=== PATIENT | male | born 1945 | race Caucasian/White ===

== ENCOUNTER 2023-10-11 11:47 | Observation (INO) | payer OTHER ==
[2023-10-11 14:53] LABS: HEMATOCRIT 40.3 % (35.4-49); HEMOGLOBIN 13.3 G/dL (11.7-16.9); MCH 31.2 pg (25.7-33.7); MCHC 32.9 g/dl (32.0-35.9); MEAN CELL VOLUME 94.9 fl (80-96); MEAN PLT VOLUME 9.7 fl (7.5-11.1); PLATELET COUNT 228.3 10^3/uL (134-434); RBC 4.25 10^6/uL (4.00-5.60); RDW 14.8 % (11.9-15.9); WHITE BLOOD COUNT 9.9 10^3/uL (4.0-10.8)
[2023-10-11 15:02] LABS: INR 1.18 (0.83-1.09); PROTHROMBIN TIME (PATIENT) 13.7 SEC (9.7-13.0)
[2023-10-11 16:46] LABS: POTASSIUM 3.7 mmol/L (3.5-5.1)
[2023-10-11 16:48] LABS: ALBUMIN 3.2 g/dl (3.4-5.0); BLOOD UREA NITROGEN 26.1 mg/dL (7-18); CALCIUM 8.9 mg/dL (8.5-10.1); MAGNESIUM 2.2 mg/dL (1.8-2.4)
[2023-10-11 16:51] LABS: CREATININE 0.7 mg/dL (0.55-1.3); PHOSPHOROUS 3.3 mg/dL (2.5-4.9)
[2023-10-11 16:53] LABS: BILIRUBIN,TOTAL 1.6 mg/dL (0.2-1); TOT PROT 6.8 g/dl (6.4-8.2)
[2023-10-11 16:56] LABS: N-TERMINAL BNP 1664.3 pg/ml (5-450)
[2023-10-11] MEDS ORDERED: ACETAMINOPHEN 325 MG TABLET (FP) ONE (19:18)
[2023-10-11] MEDS: ACETAMINOPHEN 325 MG TABLET (FP) PO ONE (19:20)
[2023-10-11] MEDS: ASPIRIN 81 MG CHEWABLE TABLETS PO ONE (21:08)
[2023-10-11 23:02] VITALS: BMI 23.5
[2023-10-11 23:04] LABS: PLATELET ESTIMATE ADEQUATE
[2023-10-12] MEDS: CARBIDOPA/LEVODOPA 25/250 TABLET (FP) PO SCH ×2 (09:25→14:55)
[2023-10-12] MEDS: ASPIRIN 81 MG CHEWABLE TABLETS PO SCH (09:26)
[2023-10-12] MEDS: ENOXAPARIN NA (PORCINE) 40 MG/0.4 ML DISP.SYRIN SQ SCH (09:26)
[2023-10-12 09:52] LABS: POTASSIUM 3.7 mmol/L (3.5-5.1)
[2023-10-12 09:57] LABS: BLOOD UREA NITROGEN 18.9 mg/dL (7-18)
[2023-10-12 09:58] LABS: CALCIUM 8.4 mg/dL (8.5-10.1)
[2023-10-12 10:00] LABS: CREATININE 0.6 mg/dL (0.55-1.3)
[2023-10-12] MEDS: ACETAMINOPHEN 1000 MG/100 ML BAG IVPB PRN (11:10)
[2023-10-12] MEDS: ATORVASTATIN CA 20 MG TABLET (FP) PO SCH (21:46)
[2023-10-12] MEDS ORDERED: CARBIDOPA/LEVODOPA 25/250 TABLET (FP) PO SCH ×2 (22:00)
[2023-10-13] MEDS: CARBIDOPA/LEVODOPA 25/250 TABLET (FP) PO SCH (06:21)
[2023-10-13] MEDS ORDERED: CARBIDOPA/LEVODOPA 25/250 TABLET (FP) PO SCH (07:00)
[2023-10-13] MEDS: ACETAMINOPHEN 1000 MG/100 ML BAG IVPB PRN (15:31)
[2023-10-14 08:15] LABS: BASO % 1.1 % (0-2.0); EOS % 6.1 % (0-4.5); HEMATOCRIT 37.3 % (35.4-49); HEMOGLOBIN 12.6 GM/dL (11.7-16.9); LYMPH % 12.5 % (8-40); MCH 31.1 pg (25.7-33.7); MCHC 33.7 g/dl (32.0-35.9); MEAN CELL VOLUME 92.3 fl (80-96); MONO % 12.5 % (3.8-10.2); NEUT % 67.8 % (42.8-82.8); PLATELET COUNT 229 10^3/uL (134-434); RBC 4.04 M/mm3 (4.00-5.60); RDW 13.8 % (11.9-15.9); WHITE BLOOD COUNT 7.3 K/mm3 (4.0-10.0)
[2023-10-14 08:24] LABS: POTASSIUM 3.9 mmol/L (3.5-5.1)
[2023-10-14 08:25] LABS: CALCIUM 8.3 mg/dL (8.5-10.1)
[2023-10-14 08:26] LABS: ALBUMIN 2.7 g/dl (3.4-5.0); BLOOD UREA NITROGEN 16.7 mg/dL (7-18)
[2023-10-14 08:29] LABS: CREATININE 0.6 mg/dL (0.55-1.3)
[2023-10-14 08:31] LABS: BILIRUBIN,TOTAL 0.6 mg/dL (0.2-1); TOT PROT 6.2 g/dl (6.4-8.2)
[2023-10-14] MEDS: ATORVASTATIN CA 20 MG TABLET (FP) PO SCH (21:24)
[2023-10-15] MEDS: CARBIDOPA/LEVODOPA 25/250 TABLET (FP) PO SCH (05:28)
[2023-10-15] MEDS: ENOXAPARIN NA (PORCINE) 40 MG/0.4 ML DISP.SYRIN SQ SCH (09:30)
[2023-10-15] MEDS: ASPIRIN 81 MG CHEWABLE TABLETS PO SCH (09:30)
[2023-10-15] MEDS: ACETAMINOPHEN 325 MG TABLET (FP) PO PRN (21:05)
[2023-10-18 08:23] VITALS: RESP 20
[2023-10-18 18:28] VITALS: BP 111/59; PULSE 64; TEMP 97.2
== END 2023-10-18 18:26 ==
LOC: FER 11:47 → INTOOBSV 20:17 → UNDOADMOB 20:17 → FM/S 20:17 → J4W 10-12 12:20
PROVIDERS: ADMIT Internal Medicine; ATTEND Internal Medicine
PROC: 3E033NZ Introduction of Analgesics, Hypnotics, Sedatives into Peripheral Vein, Percutaneous Approach (ICD-10-PCS; principal; 2023-10-12)
PROC: 3E023GC Introduction of Other Therapeutic Substance into Muscle, Percutaneous Approach (ICD-10-PCS; 2023-10-12)
DX: G20.A1 Parkinson's disease without dyskinesia, without mention of fluctuations (principal); R77.8 Other specified abnormalities of plasma proteins; R53.1 Weakness; E78.5 Hyperlipidemia, unspecified; S80.212A Abrasion, left knee, initial encounter; S80.211A Abrasion, right knee, initial encounter; W18.39XA Other fall on same level, initial encounter; Z91.81 History of falling; Y93.89 Activity, other specified; Y92.008 Other place in unspecified non-institutional (private) residence as the place of occurrence of the external cause; S50.312A Abrasion of left elbow, initial encounter; S50.311A Abrasion of right elbow, initial encounter; L53.8 Other specified erythematous conditions; R79.89 Other specified abnormal findings of blood chemistry
CPT/HCPCS: 0241U-QW; 36415; 70450-TC; 70551-TC; 71045-TC-FY; 72125-TC; 72170-TC-FY; 73030-TC-RT-FY; 73070-TC-LT-FY; 73070-TC-RT-FY; 73562-TC-RT-FY; 80048; 80053; 80061; 81003; 81015; 82550; 82553; 83735; 83880; 84100; 84443; 84484; 85025; 85027; 85610; 85730; 86850; 86900; 86901; 87086; 93005; 93306-TC; 96372; 96374; 96376; 97116-GP; 97162-GP; 99285-25; G0378; J0131

== ENCOUNTER 2024-06-19 14:14 | Observation (INO) | payer OTHER ==
[2024-06-19 14:20] VITALS: BMI 23.1
[2024-06-19 18:30] LABS: BASO % 0.8 % (0-2.0); EOS % 1.5 % (0-4.5); HEMATOCRIT 38.6 % (35.4-49); LYMPH % 14.9 % (8-40); MCH 31.3 pg (25.7-33.7); MCHC 33.6 g/dl (32.0-35.9); MEAN PLT VOLUME 9.5 fl (7.5-11.1); MONO % 11.7 % (3.8-10.2); NEUT % 71.1 % (42.8-82.8); PLATELET COUNT 286 10^3/uL (134-434); RBC 4.14 M/mm3 (4.00-5.60); RDW 14.1 % (11.9-15.9); WHITE BLOOD COUNT 9.8 K/mm3 (4.0-10.0)
[2024-06-19 19:11] LABS: POTASSIUM 4.5 mmol/L (3.5-5.1)
[2024-06-19 19:13] LABS: ALBUMIN 3.5 g/dl (3.4-5.0); BLOOD UREA NITROGEN 23.5 mg/dL (7-18); CALCIUM 8.7 mg/dL (8.5-10.1)
[2024-06-19 19:16] LABS: CREATININE 0.6 mg/dL (0.55-1.3)
[2024-06-19 19:18] LABS: BILIRUBIN,TOTAL 0.5 mg/dL (0.2-1); TOT PROT 6.8 g/dl (6.4-8.2)
[2024-06-19] MEDS: ATORVASTATIN CA 20 MG TABLET (FP) PO SCH (22:40)
[2024-06-20] MEDS: CARBIDOPA/LEVODOPA 25/250 TABLET (FP) PO SCH (06:33)
[2024-06-20 07:34] LABS: BASO % 1.1 % (0-2.0); EOS % 3.5 % (0-4.5); HEMATOCRIT 38.4 % (35.4-49); HEMOGLOBIN 13.1 GM/dL (11.7-16.9); MCH 31.5 pg (25.7-33.7); MCHC 34.1 g/dl (32.0-35.9); MEAN CELL VOLUME 92.4 fl (80-96); MEAN PLT VOLUME 9.3 fl (7.5-11.1); MONO % 8.9 % (3.8-10.2); NEUT % 70.5 % (42.8-82.8); PLATELET COUNT 273 10^3/uL (134-434); RBC 4.16 M/mm3 (4.00-5.60); WHITE BLOOD COUNT 8.3 K/mm3 (4.0-10.0)
[2024-06-20 07:41] LABS: POTASSIUM 4.1 mmol/L (3.5-5.1)
[2024-06-20 07:44] LABS: BLOOD UREA NITROGEN 17.5 mg/dL (7-18); CALCIUM 8.9 mg/dL (8.5-10.1)
[2024-06-20 07:48] LABS: CREATININE 0.6 mg/dL (0.55-1.3)
[2024-06-20] MEDS: ASPIRIN 81 MG CHEWABLE TABLETS PO SCH (10:18)
[2024-06-20 11:59] LABS: PH,URINE 6.5 (5.0-8.0); URINE APPEARANCE CLEAR; URINE BILIRUBIN NEGATIVE (NEGATIVE); URINE COLOR YELLOW; URINE GLUCOSE (UA) NEGATIVE (NEGATIVE); URINE KETONE NEGATIVE (NEGATIVE); URINE LEUK ESTERASE NEGATIVE (NEGATIVE); URINE NITRITE NEGATIVE (NEGATIVE); URINE PROTEIN NEGATIVE (NEGATIVE); URINE UROBILINOGEN 0.2 mg/dL (0.2-1.0)
[2024-06-20 18:58] VITALS: RESP 18
[2024-06-21] MEDS: CARBIDOPA/LEVODOPA 25/250 TABLET (FP) PO SCH (05:35)
[2024-06-21] MEDS: ACETAMINOPHEN 325 MG TABLET (FP) PO PRN (20:41)
[2024-06-22] MEDS: traMADol HCL 50 MG TABLET PO ONE (16:09)
[2024-06-24 11:18] VITALS: TEMP 97.9
[2024-06-24 14:14] VITALS: BP 131/64; PULSE 78
== END 2024-06-24 14:35 ==
LOC: JER 14:14 → JERBED 19:12 → J7W 23:52
PROVIDERS: ADMIT Internal Medicine; ATTEND Internal Medicine
DX: G20.A1 Parkinson's disease without dyskinesia, without mention of fluctuations (principal); R53.1 Weakness; E78.5 Hyperlipidemia, unspecified; M25.511 Pain in right shoulder; R26.2 Difficulty in walking, not elsewhere classified; W18.39XA Other fall on same level, initial encounter; Y93.89 Activity, other specified; Y92.009 Unspecified place in unspecified non-institutional (private) residence as the place of occurrence of the external cause; Z87.891 Personal history of nicotine dependence
CPT/HCPCS: 36415; 70450-TC; 71046-TC-FY; 72125-TC; 72170-TC-FY; 73564-TC-RT-FY; 80048; 80053; 81003; 85025; 87086; 93005; 93010; 97116-GP; 97162-GP; 99285-25; G0378